=== PATIENT | female | born 1945 | race Caucasian/White ===

== ENCOUNTER 2019-07-03 17:28 | Inpatient (IN) | payer MEDICARE, OTHER, SELFPAY ==
[2019-07-03] VITALS (9 sets, daily range): BP systolic 107–159; BP diastolic 50–118; PULSE 61–139; RESP 14–26; TEMP 36.8–36.9; O2SAT 97–100; BMI 36.3
--- NOTE | ~2019-07-03 | CT_ITS ---
EXAMINATION: CTA chest PE protocol DATE: 07/04/2019 08:46 INDICATION: Pleuritic chest pain TECHNIQUE: Computed tomography (CT) pulmonary angiogram of the chest was performed with 100 mL Omnipa que-350 intravenous contrast. Additional 3D reconstructions utilizing coronal maximum intensity proje ction (MIP) were performed. Automated exposure control and iterative reconstruction technique were em ployed. The dose-length product was 472.62 mGy-cm. COMPARISON: None FINDINGS: Excellent contrast opacification of the pulmonary arteries. There is mild streak artifact from dense contrast in the superior vena cava and right atrium. Minimal scattered respiratory motion artifact wh ich does not significantly limit evaluation. No pulmonary embolism. Mild linear discoid atelectasis i n the lingula and bilateral lower lobes. Calcified left lower lobe nodule consistent with old granulo matous disease. No pneumonia, pulmonary edema, pleural effusion or pneumothorax. Heart size is normal . Atherosclerotic coronary artery calcification. No pericardial effusion. Thoracic aorta is normal in caliber. Mild likely reactive bilateral hilar lymphadenopathy. Postoperative change at the right jason ast with small seroma along side the few surgical clips. Additional surgical clip at the right axilla . Cholecystectomy clips the gallbladder fossa. Diffuse hepatic steatosis. Moderate thoracic spondylos is with bridging osteophytes at multiple levels consistent with diffuse idiopathic skeletal hyperosto sis (DISH). IMPRESSION: 1. Mild atelectasis in the lingula and bilateral lower lobes. No pulmonary embolism or other acute ca rdiopulmonary disease. Reviewed, dictated and finalized at location A. IMPRESSION: 1. Mild atelectasis in the lingula and bilateral lower lobes. No pulmonary embo lism or other acute cardiopulmonary disease.
--- NOTE | ~2019-07-03 | XR_ITS ---
EXAMINATION: XR chest 1V portable EXAM DATE: 07/03/2019 18:16 INDICATION: Mid chest pain. TECHNIQUE: Portable AP frontal chest x-ray was obtained. There is no prior study for comparison. FINDINGS: The lungs are clear. There are no pleural effusions. The cardiomediastinal silhouette is within normal limits. There is no pneumothorax suspected. There are mild bony degenerative changes. There is aortic arterial sclerosis. IMPRESSION: No acute cardiopulmonary findings. Reviewed, dictated and finalized at location A.
--- NOTE | 2019-07-03 17:44 | ED.CHESTPAIN ---
HPI - Chest Pain General Chief Complaint: Chest Pain Stated Complaint: pain in left breast Time Seen by Provider: 07/03/19 17:36 Source: patient and RN notes reviewed Mode of arrival: ambulatory Limitations: no limitations History of Present Illness HPI narrative: Pt is a 73 y/o female who presents to the ED with c/o lt sided chest pain starting this morning. She notes that she woke up this morning with what she believed to be gas pain in the lt side of her chest. Pt states that her pain has been constant throughout the day. She rated her pain at 5/10 at its worst, but states that her pain is slightly alleviated while in the ED bed. Pt notes that her pain is aggravated with deep breathing. She also reports mild palpitations, but denies any fever or chills. Pt states that she was evaluated at an urgent care facility this afternoon for her symptoms, and notes that she was sent to the ED due to her EKG showing signs of A-Fib. She states that she has no Hx of DM, HTN, HLD, COPD, or emphysema. MD complaint: chest pain Onset (ago): hour(s) (several) Timing of current episode: constant Onset: awoke with symptoms Pain location: left chest Exacerbating factors: other (deep breathing) Associated symptoms: palpitations Related Data Allergies Allergy/AdvReac Type Severity Reaction Status Date / Time No Known Drug Allergies Allergy Unknown Verified 09/11/11 11:33 Review of Systems Review of Systems: All systems reviewed & are unremarkable except as noted in HPI and below Constitutional: Constitutional: Denies chills and Denies fever(s) Cardiovascular: Cardiovascular: Reports chest pain (lt sided chest pain) and Reports palpitations PMFSH Past Medical History Medical History Cancer of right breast Port-A-Cath in place Seasonal allergies Surgical History Surgical History History of lumpectomy of right breast Hx of cholecystectomy Hx of tonsillectomy Social History Social History Smoking status: Never smoker Exam Narrative: Exam Narrative: General appearance: Well-developed, well-nourished Skin: Normal color Head: Normocephalic, nontraumatic Eyes: Clear conjunctiva ENT: Oropharynx normal, ears normal, nose normal Neck: Supple, nontender Chest and respiratory: Airway patent, no respiratory distress, no accessory muscle use Heart: Tachycardia, irregular irregularity Abdomen: Soft, nontender, no organomegaly, quiet bowel sounds Vascular: Normal peripheral pulses, normal capillary refill. Musculoskeletal: Normal range of motion, nontender back Neurologic: Alert and oriented ?3, CONTENT DIRECTOR is normal as tested, no gross motor deficit Course Course Emergency Course: Improving Consultations Consultation #1: Discussed case with pay clerk, Dr. Cowan. Accepted the pt. Date: 07/03/19 Time: 19:35 Consultation #2: Discussed case with hospitalist, Dr. Quintana. Accepted admission. Date: 07/03/19 Time: 20:11 Vital Signs Vital signs: Vital Signs Pulse Rate 139 H 07/03/19 17:33 Respiratory Rate 19 07/03/19 17:33 Blood Pressure 159/118 H 07/03/19 17:33 Pulse Oximetry 98 07/03/19 17:33 Pulse Rate 91 07/03/19 18:18 Respiratory Rate 14 07/03/19 18:18 Blood Pressure 140/78 07/03/19 18:18 Pulse Oximetry 100 07/03/19 18:18 MDM - Chest Pain MDM Narrative Medical decision making narrative: Patient 73 years old without any significant past medical history, last time was seen by a physician over 1 year ago, presents with chest pain, palpitation, EKG on arrival to the emergency room shows that
--- NOTE | 2019-07-03 17:56 | ECG_ITS ---
Measurements Intervals [place] Rate: 96 P: DC: 0 QRS: 36 QRSD: 84 T: 269 QT: 408 QTc: 518 Interpretive Statements ATRIAL FIBRILLATION WITH RAPID VENTRICULAR RESPONSE BORDERLINE T WAVE ABNORMALITY- ANTEROLATERAL LEADS BASELINE ARTIFACT- I, II, III, AVR ABNORMAL ECG Electronically Signed On 07-03-2019 18:02:28 CDT by Spencer Chavez D.O.
[2019-07-03] MEDS: NITROGLYCERIN SL 0.4 MG TABLET SUBLINGUAL (18:20)
--- NOTE | 2019-07-03 18:20 | PC.NURSE ---
Spoke with TANIYA Agustin about pt HR in the 80s. TANIYA states to not give the bolus but to administer the lovenox and start the cardizem at 5mg/hr.
[2019-07-03] MEDS: ENOXAPARIN 80 MG/0.8 ML SYRINGE 90 MG SUB-Q (18:25)
[2019-07-03 18:43] LABS: D Dimer 0.27 ug/mL (<0.48)
--- NOTE | 2019-07-03 18:53 | ECG_ITS ---
Measurements Intervals [place] Rate: 85 P: 27 VT: 199 QRS: 19 QRSD: 85 T: 34 QT: 366 QTc: 437 Interpretive Statements SINUS RHYTHM ATRIAL PREMATURE COMPLEXES POSSIBLE LEFT ATRIAL ENLARGEMENT RSR' IN V1 OR V2, CONSIDER RIGHT VENTRICULAR HYPERTROPHY OR RIGHT VCD LOW QRS VOLTAGE IN PRECORDIAL LEADS NONSPECIFIC T-WAVE ABNORMALITY- DIFFUSE LEADS BORDERLINE ECG Electronically Signed On 07-04-2019 7:11:14 CDT by Spencer Chavez D.O.
[2019-07-03 19:14] LABS: Basophils Absolute Auto 0.1 K/mm3 (0.0-0.1); Basophils Percent Auto 0.8 % (0.2-1.2); Eosinophils Absolute Auto 0.2 K/mm3 (0-0.3); Eosinophils Percent Auto 2.2 % (0-4.4); Hematocrit 41.8 % (37.0-47.0); Hemoglobin 13.5 g/dL (12.0-15.0); Immature Granulocyte Absolute 0.01 K/mm3 (0.00-0.031); Immature Granulocyte Percent A 0.1 % (0-0.5); Immature Platelet Fraction Pct 2.7 % (0.9-11.2); Lymphocytes Absolute Auto 1.93 K/mm3 (0.9-3.2); Lymphocytes Percent Auto 24.9 % (18.3-44.2); Mean Corpuscular HGB Conc 32.3 g/dl (32-36); Mean Corpuscular Hemoglobin 30.7 pg (26-34); Mean Platelet Volume 10.6 fl (7.4-10.4); Monocytes Absolute Auto 0.5 K/mm3 (0.1-0.6); Monocytes Percent Auto 6.8 % (2.6-8.5); Neutrophils Absolute Auto 5.1 K/mm3 (1.3-6.7); Neutrophils Percent Auto 65.2 % (45.5-73.1); Partial Thromboplastin Time 25.4 SECONDS (22.3-36.8); Platelet Count Result 238 k/mm3 (150-375); Prothrombin Time 12.4 Seconds (11.1-14.7); Red Cell Distribution Width 12.3 % (11.5-14.5); White Blood Count 7.8 K/mm3 (4.5-10.0)
[2019-07-03 19:16] LABS: Alanine Aminotransferase 16 U/L (4-35); Albumin Level 4.2 g/dL (3.5-5.1); Alkaline Phosphatase 72 U/L (38-126); Aspartate Amino Transferase 22 U/L (14-36); Bilirubin,Total 0.3 mg/dL (0.2-1.3); Blood Urea Nitrogen 8 mg/dL (7-17); Calcium 9.4 mg/dL (8.4-10.2); Carbon Dioxide 27 mmol/L (22-30); Chloride 103 mmol/L (98-107); Estimated CRCL calculation 72 ml/min; Estimated Glomerular Filt Rate > 60; Glucose 103 mg/dL (65-105); Potassium 4.1 mmol/L (3.4-5.0); Sodium 139 mmol/L (137-145)
[2019-07-03 19:24] LABS: NT Pro B Type Natriuretic Pept 589 PG/ML (5-100)
[2019-07-03 19:33] LABS: Troponin I < 0.012 ng/mL (0.000-0.034)
--- NOTE | 2019-07-03 22:03 | ADMGEN ---
This patient, Angelica Saavedra, was admitted to IMU Room 201-01. Patient/family oriented to hospital policies and general routines including ID bracelet, bed and alarms, visiting hours, pain management, procedures, bathroom and other care routines, personal items, smoking policy, room service/diet, and visiting hours. Valuables list has been completed. Information on how to activate the Rapid Response Team has been discussed. Patient/Family are encouraged to report perceived risks to care and to ask questions if they do not understand what they are told or what they should do.
[2019-07-03 23:48] LABS: Troponin I < 0.012 ng/mL (0.000-0.034)
[2019-07-04] VITALS (20 sets, daily range): BP systolic 101–123; BP diastolic 67–88; PULSE 78–129; RESP 16–22; TEMP 36.6–37.1; O2SAT 96–100
--- NOTE | 2019-07-04 00:05 | PM.IMHP ---
H&P: HPI History of Present Illness Chief complaint: CHEST PAIN,PAROXYSMAL A FIB Narrative: This is a pleasant 73 year old female with known history of prevoius right breast cancer who just returned to [place] this week from [place] by car and presented to the hospital today with complaints of left sided chest pressure since waking up this morning. The patient woke up this morning and immediately felt left sided chest heaviness that was worse with breathing. Her discomfort didn't radiate anywhere and initially she believed that it was just gas. She denies any palpitations, fever, chills or coughing today. She did just get over a sinus infection last week when she was coughing and had fever at that time. Today when her left sided chest heaviness did not go away she went to urgent care and was then referred to the hospital. On arrival to the hospital the patient was found to be in rapid atrial fibrillation. She has no previous history of heart disease or heart arrhythmias. She was started on Cardizem IV which converted her to a NSR. Cardiology, Dr. Montaño was consulted by ER provider. The patient was anticoagulated and admitted to the hospital for cardiac rule out and new onset afib. ON arrival to the floor the patient was now in rapid atrial flutter. She still has mild left sided chest discomfort with deep breathing. No other complaints at this time. Review of Systems Review of Systems: All systems reviewed & are unremarkable except as noted in HPI and below PMFSH Past Medical History Medical History Cancer of right breast Port-A-Cath in place Seasonal allergies Surgical History Surgical History History of lumpectomy of right breast Hx of cholecystectomy Hx of tonsillectomy Family History Family History Mother Afib Father Heart attack Social History Social History Smoking status: Never smoker Alcohol intake: never Substance use: never Gender identity (if verbalized by the patient): Female Spiritual care concerns: No Agree to blood products: Yes Meds Home Medications and Allergies Home Medications Medication Instructions Recorded Confirmed Type Adult Low Dose Aspirin 81 mg PO DAILY 07/03/19 07/03/19 History loratadine [Claritin] 10 mg PO DAILY 07/03/19 07/03/19 History Allergies Allergy/AdvReac Type Severity Reaction Status Date / Time No Known Drug Allergies Allergy Unknown Verified 09/11/11 11:33 Vital Signs Vital Signs - 24 hr 07/03/19 17:33 07/03/19 18:18 07/03/19 19:00 Temperature Pulse Rate 139 H 91 89 Respiratory Rate 19 14 22 H Blood Pressure 159/118 H 140/78 107/81 Pulse Oximetry 98 100 97 07/03/19 20:00 07/03/19 21:00 07/03/19 21:45 Temperature Pulse Rate 83 61 80 Respiratory Rate 24 H 26 H 21 H Blood Pressure 111/60 113/57 L 122/77 Pulse Oximetry 97 99 99 07/03/19 22:00 07/03/19 22:05 07/03/19 23:53 Temperature 36.9 C 36.8 C Pulse Rate 85 83 88 Respiratory Rate 20 20 Blood Pressure 121/50 L 121/61 Pulse Oximetry 100 99 Exam Const: General: cooperative, healthy appearing, alert and awake Nutritional Appearance: well nourished Orientation/consciousness: patient oriented x3 HENMT: Head: normal to inspection General nose exam: Normal external nose present Face and sinus: normal facial exam Mouth: Yes Normal oral and palatal mucosa present and Yes oropharynx normal Eyes: Pupils: Equal, round and reactive pupils present EOM: EOMs intact bilaterally Neck: Neck: supple and no JVD Thyroid: thyroid normal Lymphatic: lymphadenopathy not noted Resp: Effort & Inspection: normal respiratory effort Auscultation: clear to auscultation bilaterally Cardio: Rate: tachycardic Rhythm: regular rhythm Heart sounds: no murmurs GI:
--- NOTE | 2019-07-04 00:42 | ECG_ITS ---
Measurements Intervals [place] Rate: 121 P: [place]: 0 QRS: 3 QRSD: 86 T: 120 QT: 345 QTc: 490 Interpretive Statements ATRIAL FIBRILLATION WITH RAPID VENTRICULAR RESPONSE RSR' IN V1 OR V2, CONSIDER RIGHT VENTRICULAR HYPERTROPHY OR RIGHT VCD INFERIOR INFARCT, AGE INDETERMINATE BORDERLINE T WAVE ABNORMALITY- ANTEROLAT/LAT LEADS ABNORMAL ECG Electronically Signed On 07-04-2019 11:41:27 CDT by Spencer Chavez D.O.
--- NOTE | 2019-07-04 01:05 | ECHO_ITS ---
Patient Info Name: nAgelica Saavedra Age: 73 years : 1945 Gender: Female Ht: 61 in Wt: 192 lbs BSA: 1.98 m2 HR: 111 bpm BP: 121 / 70 mmHg Technical Quality: Good Exam Date: 07/04/2019 9:23 AM Exam Location: [facility] Patient Status: Inpatient Admit Date: 07/03/2019 Staff Ordering Physician: Christ Quintana MD Warp Spinner: Rahul Hair RDCS, RT Attending Provider: Raquel Ramsey PA-C Referring Physician: Lilian CHAVARRIA; Exam Type: CA echo doppler color flow Study Info Indications I48.1 - Persistent atrial fibrillation Complete two-dimensional, color flow and Doppler transthoracic echocardiogram is performed. Summary 1. Left ventricular chamber dimension is normal. 2. Left ventricular systolic function is low normal, estimated ejection fraction 45-50%. 3. Left atrial chamber dimension is mildly enlarged. 4. There is mild mitral valve stenosis. 5. The aortic valve is trileaflet. 6. There is no aortic valve stenosis. 7. Unable to estimate pulmonary arterial systolic pressure due to poor TR jet. 8. Patient in A fib during the study with HR between 100-140. Left Ventricle Left ventricular chamber dimension is normal. Left ventricular systolic function is low normal, estimated ejection fraction 45-50%. There is no increased left ventricular wall thickness. Left ventricular septal wall motion is normal. The left ventricular diastolic function is indeterminate. Right Ventricle Right ventricular chamber dimension is normal. Right ventricular systolic function is normal. Left Atria Left atrial chamber dimension is mildly enlarged. Right Atria Right atrial chamber dimension is normal. Aortic Valve The aortic valve is trileaflet. There is no aortic valve sclerosis. There is no aortic valve stenosis. There is no aortic valve regurgitation. Pulmonic Valve The pulmonic valve is normal. There is no pulmonic valve stenosis. There is no pulmonic regurgitation. Mitral Valve The mitral valve has normal leaflets. There is mild mitral valve stenosis. There is no mitral valve regurgitation. Tricuspid Valve The tricuspid valve leaflets are normal. There is no significant tricuspid valve stenosis. There is no tricuspid valve regurgitation. Unable to estimate pulmonary arterial systolic pressure due to poor TR jet. Pericardium/Pleural The pericardium appears normal. There is no pericardial effusion. Inferior Vena Cava Normal inferior vena cava with >50% collapse upon inspiration. Aorta The aortic root size at the sinus of Valsalva is normal. The prox ascending aorta size is normal. Left Ventricular Outflow Tract Name Value Normal LVOT 2D LVOT Diameter 2.1 cm LVOT Doppler LVOT Peak Gradient 2 mmHg LVOT Mean Gradient 1 mmHg LVOT VTI 17 cm LVOT VTI/AV VTI Ratio 0.9 LVOT Stroke Volume 57 ml LVOT CO 5.0 l/min LVOT CI 2.5 l/min/m2 Pulm
[2019-07-04 02:05] LABS: Troponin I < 0.012 ng/mL (0.000-0.034)
--- NOTE | 2019-07-04 06:00 | ECG_ITS ---
Measurements Intervals [place] Rate: 126 P: ND: 0 QRS: 9 QRSD: 84 T: 0 QT: 181 QTc: 262 Interpretive Statements ATRIAL FIBRILLATION WITH RAPID VENTRICULAR RESPONSE NONSPECIFIC ST & T-WAVE ABNORMALITY- LATERAL LEADS ABNORMAL ECG Electronically Signed On 07-04-2019 9:50:31 CDT by Spencer Chavez D.O.
--- NOTE | 2019-07-04 08:18 | PM.CNCAR ---
Assessment and Plan Assessment and plan (1) Chest pain: Qualifiers: Chest pain type: unspecified Qualified Code(s): R07.9 - Chest pain, unspecified Code(s): R07.9 - Chest pain, unspecified Status: Acute Assessment and Plan: Patient has pleuritic chest pain after ~[address] with new onset A fib, all raise concern for acute pulmonary embolism Will order stat CT chest to rule out She was started on Lovenox therapeutic dose. Pending CT chest will start Eliquis at PE dosing (10 mg BID) vs A fib dosing (5 mg BID) She is hemodynamically stable and troponin has been negative X 3 making massive PE less likely. (2) Atrial flutter with rapid ventricular response: Code(s): I48.92 - Unspecified atrial flutter Status: Acute Assessment and Plan: Rate better controlled Rule out PE switch cardizem to PO Continue Lovenox for now Check 2D echo to rule out structural heart disease. History of Present Illness History of Present Illness Consult date/time: 07/04/19 08:18 73 y/o female with history of breast cancer treated in 2011, no prior cardiac history who presented with chest pain. She had ~[address] from [place] and just got in town Wednesday. She developed chest pain that feels like a gas and she contributed it initially to having heavy dinner the night before but pain never improved so she decided to seek medical attention. She went to urgent care then she was referred to ER as found to be in A fib. She converted briefly to sinus rhythm but current back in A fib with heart rate ~ 100-110. On Cadizem drip @5 mg. Chest pain has improved but she feels it when she takes deep breath. Denies dyspnea or lower ext edema or pain. Deniess dizziness, lightheadedness or syncope. Never smoker. Father of [place] at age of 60. Reason For Visit: CHEST PAIN,PAROXYSMAL A FIB Review of Systems Review of Systems: All systems reviewed & are unremarkable except as noted in HPI and below Constitutional: Constitutional: Denies fatigue and Denies headache(s) Eyes: Eyes: Denies blurry vision ENT: Reports Normal hearing present and Denies headache(s) Cardiovascular: Cardiovascular: Denies chest pain, Denies diaphoresis, Denies pedal edema, Denies leg edema, Denies lightheadedness, Denies palpitations and Denies dyspnea Respiratory: Respiratory: Denies cough and Denies dyspnea Gastrointestinal: Gastrointestinal: Denies abdominal pain Musculoskeletal: Musculoskeletal: Denies back pain Neurologic: Reports Normal hearing present and Denies headache(s) Psychiatric: Psychiatric: Denies anxiety Endocrine: Endocrine: Denies fatigue and Denies palpitations PMFSH Past Medical History Medical History Cancer of right breast Port-A-Cath in place Seasonal allergies Surgical History Surgical History History of lumpectomy of right breast Hx of cholecystectomy Hx of tonsillectomy Family History Family History Mother Afib Father Heart attack Social History Social History Smoking status: Never smoker Alcohol intake: never Substance use: never Gender identity (if verbalized by the patient): Female Spiritual care concerns: No Agree to blood products: Yes Meds Home Medications and Allergies Home Medications Medication Instructions Recorded Confirmed Type Adult Low Dose Aspirin 81 mg PO DAILY 07/03/19 07/03/19 History loratadine [Claritin] 10 mg PO DAILY 07/03/19 07/03/19 History Allergies Allergy/AdvReac Type Severity Reaction Status Date / Time No Known Drug Allergies Allergy Unknown Verified 09/11/11 11:33 Vital Signs Vital Signs - 24 hr 07/03/19 17:33 07/03/19 18:18 07/03/19 19:00 Temperature Pulse Rate 139 H 91 89 Respirator
[2019-07-04] MEDS: LORATADINE 10 MG TABLET PO (08:29)
[2019-07-04] MEDS: ASPIRIN 81 MG CHEWABLE TABLET PO (08:30)
[2019-07-04] MEDS: ENOXAPARIN 100 MG/ML SYRINGE 85 MG SUB-Q (08:55)
[2019-07-04] MEDS: METOPROLOL TARTRATE 25 MG TABLET PO ×3 (11:53→22:15)
[2019-07-04] MEDS: APIXABAN 5 MG TABLET PO ×2 (11:53→20:38)
--- NOTE | 2019-07-04 17:27 | PM.IMPN ---
Progress Note: A&P Assessment and Plan (1) Atrial flutter with rapid ventricular response: Code(s): I48.92 - Unspecified atrial flutter Status: Acute Assessment and Plan: -----patient has been on a Cardizem drip up until 3:00 p.m. and it was turned off and she was started on metoprolol. Since then she has been rate controlled and not in any pain at this time. Echo reviewed which shows systolic function slightly low 45-50% with no significant valvular heart disease. Cardiology has been consulted and I appreciate their further recommendations. Eliquis started (2) Chest pain: Qualifiers: Chest pain type: unspecified Qualified Code(s): R07.9 - Chest pain, unspecified Code(s): R07.9 - Chest pain, unspecified Status: Acute Assessment and Plan: -------Resolved. Troponins negative x3. Chest pain due to above. Continue Eliquis. Time Spent With Patient Time with patient: 25 - 35 minutes Subjective Date/time seen: 07/04/19 17:27 Interval history: Pt is a 73-year-old female here for AFib RVR. Patient was seen today and states she is doing much better than yesterday. She has not had any chest pain today. She had some palpitations earlier but that has improved. She experiences no shortness of breath with this. She has been up and walking to the bathroom without problems. She has been eating and drinking okay and denies nausea, vomiting, diarrhea, or constipation. No fevers. Review of Systems Review of Systems: All systems reviewed & are unremarkable except as noted in HPI and below Exam Narrative: Exam Narrative: General: Well developed well nourished patient resting comfortably in bed in [facility] HEENT: normocephalic Neck: supple Neuro: Alert and oriented x4 CV: Irregularly irregular rate 108 during exam. Telemetry reviewed which showed AFib RVR up to 140s around noon. She has been under 100 thereafter this. Resp:CTA Abd: Soft, non distended. No pain to palpation. Positive bowel sounds Extremities: No swelling, erythema, or pain to palpation. Objective Data Vital Signs Vital Signs: Vital Signs - 24 hr 07/03/19 17:33 07/03/19 18:18 07/03/19 19:00 Temperature Pulse Rate 139 H 91 89 Respiratory Rate 19 14 22 H Blood Pressure 159/118 H 140/78 107/81 Pulse Oximetry 98 100 97 07/03/19 20:00 07/03/19 21:00 07/03/19 21:45 Temperature Pulse Rate 83 61 80 Respiratory Rate 24 H 26 H 21 H Blood Pressure 111/60 113/57 L 122/77 Pulse Oximetry 97 99 99 07/03/19 22:00 07/03/19 22:05 07/03/19 23:53 Temperature 98.5 F 98.3 F Pulse Rate 85 83 88 Respiratory Rate 20 20 Blood Pressure 121/50 L 121/61 Pulse Oximetry 100 99 07/04/19 00:00 07/04/19 02:00 07/04/19 04:00 Temperature 98.3 F Pulse Rate 89 119 H 106 H Respiratory Rate 18 Blood Pressure 121/70 Pulse Oximetry 98 07/04/19 06:00 07/04/19 08:00 07/04/19 10:00 Temperature 98.4 F Pulse Rate 114 H 122 H 110 H Respiratory Rate 18 Blood Pressure 108/78 Pulse Oximetry 96 07/04/19 11:50 07/04/19 11:53 07/04/19 12:00 Temperature 98.8 F Pulse Rate 104 H 120 H 129 H Respiratory Rate 16 Blood Pressure 123/88 Pulse Oximetry 98 07/04/19 14:00 07/04/19 16:00 07/04/19 16:34 Temperature 98.4 F Pulse Rate 91 108 H 78 Respiratory Rate 22 H Blood Pressure 101/67 Pulse Oximetry 97 Intake/Output Intake/Output: Intake & Output 07/01/19 07/02/19 07/03/19 07/04/19 23:59 23:59 23:59 23:59 Intake Total 697 Output Total 1050 Balance -353 Meds/Results Medications: Active Medications Generic Name Dose Route Start Last Admin Trade Name Freq PRN Reason Stop Dose Admin Acetaminophen 650 mg 07/03/19 20:22 Tylenol Tablet PO Q4H PRN Mild Pain (1-3) or Fever Apixaban 5 mg 07/04/19 21:00 Eliquis PO Q12HR [facility] Aspirin 81 mg 07/04/19 08:00 07/04/19 08:30 Aspirin Chewable PO 81 mg DAILY@0800 [facility] Ad
[2019-07-04] MEDS: BENZOCAINE/MENTHOL (*BKC) 18 EA LOZENGE 1 LOZENGE PO (20:38)
[2019-07-04] MEDS: BENZONATATE 100 MG CAPSULE PO (20:38)
[2019-07-05] VITALS (12 sets, daily range): BP systolic 105–110; BP diastolic 66–79; PULSE 69–138; RESP 18–20; TEMP 36.4–36.7; O2SAT 99–100
--- NOTE | 2019-07-05 08:43 | PM.PNCARD ---
Progress Note: A&P Assessment and Plan (1) Atrial flutter with rapid ventricular response: Code(s): I48.92 - Unspecified atrial flutter Status: Acute Assessment and Plan: Rate better controlled over all Echo showed low normal EF ~45-50%. D/kriss Cardizem and switched to Metoprolol Will switch Metoprolol to XL and increase the dose fo 100 mg daily Will also load with digoxin for better rate control. 250 Mcg IV X1 now then 125X1 in sex hours. Then may start 125 mcg PO daily starting tomorrow WIll follow HR control with that. If rate is acceptable then she would be okay for discharge later this afternoon Continue Eliquis for stroke prevention Will plan outpatient EP referral for elective A flutter ablation. (2) Chest pain: Qualifiers: Chest pain type: unspecified Qualified Code(s): R07.9 - Chest pain, unspecified Code(s): R07.9 - Chest pain, unspecified Status: Acute Assessment and Plan: Patient has pleuritic chest pain after ~[address] chest with no PE troponin has been negative X 3 WIll consider outpatient stress testing once heart rate well controlled Subjective Date/time seen: 07/05/19 08:43 She feels fine and wonders if can go home today. Currently in A flutter with HR ~ 100-110 overnight. Review of Systems Review of Systems: All systems reviewed & are unremarkable except as noted in HPI and below Constitutional: Constitutional: Denies fatigue and Denies headache(s) Eyes: Eyes: Denies blurry vision ENT: Reports Normal hearing present and Denies headache(s) Cardiovascular: Cardiovascular: Denies chest pain, Denies diaphoresis, Denies pedal edema, Denies leg edema, Denies lightheadedness, Denies palpitations and Denies dyspnea Respiratory: Respiratory: Denies cough and Denies dyspnea Gastrointestinal: Gastrointestinal: Denies abdominal pain Musculoskeletal: Musculoskeletal: Denies back pain Neurologic: Reports Normal hearing present and Denies headache(s) Psychiatric: Psychiatric: Denies anxiety Endocrine: Endocrine: Denies fatigue and Denies palpitations Exam Const: General: no acute distress Eyes: Sclera: sclerae normal Neck: Neck: no JVD Carotids: no bruits Resp: Effort & Inspection: normal respiratory effort Auscultation: clear to auscultation bilaterally Cardio: Rate: regular rate and not tachycardic Rhythm: regular rhythm Heart sounds: no gallops, no murmurs and no rubs Skin: General skin exam: normal color Neuro: Cranial nerves: Yes Normal hearing present Speech: normal speech Extrem: General: normal to inspection and no edema Psych: Affect: normal affect Objective Data Vital Signs Vital Signs: Vital Signs - 24 hr 07/04/19 10:00 07/04/19 11:50 07/04/19 11:53 Temperature 37.1 C Pulse Rate 110 H 104 H 120 H Respiratory Rate 16 Blood Pressure 123/88 Pulse Oximetry 98 07/04/19 12:00 07/04/19 14:00 07/04/19 16:00 Temperature Pulse Rate 129 H 91 108 H Respiratory Rate Blood Pressure Pulse Oximetry 07/04/19 16:34 07/04/19 18:00 07/04/19 18:05 Temperature 36.9 C Pulse Rate 78 111 H 120 H Respiratory Rate 22 H Blood Pressure 101/67 Pulse Oximetry 97 07/04/19 19:49 07/04/19 20:00 07/04/19 22:07 Temperature 36.6 C 36.7 C Pulse Rate 105 H 112 H 122 H Respiratory Rate 18 18 Blood Pressure 115/69 101/72 Pulse Oximetry 98 99 07/04/19 22:09 07/04/19 22:15 07/04/19 23:52 Temperature 36.6 C Pulse Rate 119 H 119 H 110 H Respiratory Rate 20 Blood Pressure 106/72 Pulse Oximetry 100 07/05/19 00:00 07/05/19 02:09 07/05/19 04:00 Temperature 36.7 C Pulse Rate 105 H 111 H 82 Respiratory Rate 20 Blood Pressure 105/79 Pulse Oximetry 99 07/05/19 06:00 07/05/19 08:18 Temperature 36.7 C Pulse Rate 106 H 138 H Respiratory Rate 18 Blood Pressure 107/66 Pulse Oximetry 100 Intake/Output Intake/Output: Intake & Output 07/02/19
[2019-07-05] MEDS: ASPIRIN 81 MG CHEWABLE TABLET PO (09:04)
[2019-07-05] MEDS: APIXABAN 5 MG TABLET PO (09:04)
[2019-07-05] MEDS: LORATADINE 10 MG TABLET PO (09:04)
[2019-07-05] MEDS: METOPROLOL SUCCINATE EXT REL 100 MG TABCR PO (09:05)
[2019-07-05] MEDS: DIGOXIN INJ 250 MCG/ML 2 ML AMP (*BKC) IV PUSH (09:06)
[2019-07-05] MEDS: DIGOXIN INJ 250 MCG/ML 2 ML AMP (*BKC) 125 MCG IV PUSH (13:44)
--- NOTE | 2019-07-05 15:13 | PM.DS ---
DS: Diagnosis Admitting Diagnosis Admitting Diagnosis: Unspecified atrial flutter Discharge Diagnosis (1) Atrial flutter with rapid ventricular response: Code(s): I48.92 - Unspecified atrial flutter Status: Acute (2) Chest pain: Qualifiers: Chest pain type: unspecified Qualified Code(s): R07.9 - Chest pain, unspecified Code(s): R07.9 - Chest pain, unspecified Status: Acute DS: Summary Hospital Course Reason for hospitalization: Chest pain Hospital Course: Patient is 73-year-old female who presented emergency room for left-sided chest pain found to be in new onset atrial fibrillation. Vitals in the ER pulse 139, respiratory rate 19, blood pressure 159/118, pulse ox 98 on room air. CBC and BMP within normal limits. TSH normal. Chest x-ray negative. EKG revealed AFib RVR without significant ST change. Troponins were negative x3. Revealed mild atelectasis but no pulmonary emboli. Echo showed low end of normal EF 45-50%. Cardiology saw the patient and she was initially placed on a Cardizem drip. She was transition to oral metoprolol and digoxin. The day of discharge she was still in a flutter but her rate was controlled. She had absolutely no pain the day of discharge. She was started on Eliquis for stroke prophylaxis. The patient was eager for discharge. She is plans to follow up with the general service technician in 1 week and she was educated about the worrisome signs and symptoms to come back to emergency room for. She was discharged in stable condition. Status at Discharge Functional status at discharge: independent ambulation Overall status at discharge: patient is back to baseline Time Spent with Patient Time attestation: Total time spent providing and/or coordinating discharge services:34 min Time spent: Greater than 30 minutes Exam Narrative: Exam Narrative: General: Well developed well nourished patient resting comfortably in bed in NAD HEENT: normocephalic Neck: supple Neuro: Alert and oriented x4 CV: Irregular rate 93. Telemetry reviewed which showed a flutter RVR up to 140 earlier today but has been under 100 recently. Resp:CTA Abd: Soft, non distended. No pain to palpation. Positive bowel sounds Extremities: No swelling, erythema, or pain to palpation. Discharge Plan Discharge Attending physician on discharge: Salena Atkins Consulting providers: Albert North ; Raquel Ramsey ; Spencer Chavez ; Brice Worley ; Elkin Easton Discharging Clinician: Raquel Ramsey Patient Disposition: Home, Self-Care Activity: as tolerated Diet: heart healthy Discharge Instructions: -please note your medications have changed -You are now on a blood thinner . This will make you bleed easier. If you have a wound or scrape yourself, you will need to hold pressure for a longer period of time. If you fall or hit your head, you will need to seek medical attention right away. As discussed, if you notice black, tarry stool please call your doctor as this may be blood -follow up with your primary care doctor in 1-2 weeks about this stay. -follow-up with Dr. North, general service technician. Call them and make an appointment with them. -Worrisome signs and symptoms to come back to the ER for: chest pain, shortness of breath, heart palpitations, feeling like your heart is racing, fever 100.4 or greater, progressive significant weakness, or any other worrisome symptom. Patient Instructions: Metoprolol (By mouth), Digoxin (By mouth), Apixaban (By mouth), A-fib (Atrial Fibrillation) (DC) Stand Alone Forms: General Discharge Information Follow-up/Referrals: Albert North MD [Physician] - 1 Week Discharge Medications: New metoprolol succinate [Toprol XL] 100 mg Tablet Extended Release 24 Hr 100 mg PO QAM Qty: 30 RF: 0 digoxin 125 mcg (0.125 mg) Tablet 125 mcg PO QAM Qty: 30 RF: 0 Eliquis 5 mg Tablet 5 mg PO Q12HR Qty: 60 RF: 0 Continued Adult Low Dose As
== END 2019-07-05 16:00 | disposition home or self-care (01) | DRG 310 ==
LOC: ANHED 20:29 → ANHIMU 20:49
PROVIDERS: Admitting Provider Family Medicine; Emergency Provider Emergency Medicine; PCP Internal Medicine; Visit Provider Family Medicine
DX: I48.91 Unspecified atrial fibrillation (principal); I48.92 Unspecified atrial flutter; R07.9 Chest pain, unspecified; J43.9 Emphysema, unspecified; I10 Essential (primary) hypertension; E78.5 Hyperlipidemia, unspecified; Z90.49 Acquired absence of other specified parts of digestive tract; Z85.3 Personal history of malignant neoplasm of breast
CPT/HCPCS: 36415; 71045; 71275; 80053; 83880; 84443; 84484; 85025; 85055; 85380; 85610; 85730; 93005; 93306; 96365; 96366; 96372; 96376; 99285; A9270; G0378; J1160; J1650; Q9967